=== PATIENT | male | born 1985 | race Caucasian/White ===

== ENCOUNTER 2020-04-06 09:27 | Emergency (ER) | payer SELFPAY ==
[~2020-04-06] VITALS: Ht 185.4 cm; Wt 110.0 kg
[2020-04-06 09:35] VITALS: BP 137/105
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
--- NOTE | 2020-04-06 11:59 | NUR ---
PT REC'VD DISCHARGE INSTRUCTIONS AND EDUCATION. PT STATED NO FURTHER QUESTIONS. PT AMBULATED TO DC AREA, STEADY GAIT.
== END 2020-04-06 12:01 | disposition home or self-care (01) ==
LOC: ED 10:42
DX: B34.9 Viral infection, unspecified (principal); Z20.828 Contact with and (suspected) exposure to other viral communicable diseases; R06.02 Shortness of breath; R05 Cough; R50.9 Fever, unspecified; R06.00 Dyspnea, unspecified; Z76.0 Encounter for issue of repeat prescription
CPT/HCPCS: 71045; 82375; 87635; 93005; 99285